=== PATIENT | male | born 1955 | race African-American/Black ===

== ENCOUNTER 2016-08-16 19:50 | Emergency (ER) | payer BC, MEDICAID ==
[~2016-08-16] VITALS: Ht 185.4 cm; Wt 146.5 kg
[~2016-08-16 19:50] MED LIST: APIX5TAB PO; ASPI81CH43 PO; ATE50T PO; ATOR20TA50 PO; CLOP75TA28 PO; DYA375C PO; LOSA50TA6 PO; PANT40TA2 PO
[2016-08-16 20:41] LABS: Basophils # (auto) 0 uL; Basophils % (auto) 0.3 % (0.0-2.0); Eosinophils # (auto) 0.2 uL; Eosinophils % (auto) 2.5 % (0.0-7.0); Hematocrit 43.3 % (41.0-53.0); Hemoglobin 13.9 g/dL (13.5-17.5); Lymphocytes # (auto) 2.1 uL; Lymphocytes % (auto) 26.3 % (10.0-50.0); Mean Corpuscular Hemoglobin 28.7 pg (28.0-32.0); Mean Corpuscular Hgb Conc. 32.2 g/dL (32.0-36.0); Mean Platelet Volume 8.8 fL (7.4-10.4); Monocytes # (auto) 0.7 uL; Monocytes % (auto) 9.1 % (0.0-12.0); Neutrophils # (auto) 4.9 uL; Neutrophils % (auto) 61.8 % (37.0-80.0); Platelet Count (auto) 264 10^3/uL (140-450); Red Cell Distribution Width 15.9 % (11.6-16.0)
[2016-08-16 20:54] LABS: INR 1.02 (0.9-1.15); Partial Thromboplastin Time 27.8 sec (22.64-33.71)
[2016-08-16 21:01] LABS: Albumin 3.4 g/dL (3.4-5.0); Anion Gap 5 (5-15); Blood Urea Nitrogen 15 mg/dL (7-18); Calcium 8.7 mg/dL (8.5-10.1); Carbon Dioxide 30 mmol/L (21-32); Chloride 106 mmol/L (98-107); Glucose 81 mg/dL (74-106); Potassium 3.9 mmol/L (3.5-5.1); Sodium 141 mmol/L (136-145)
[2016-08-16 21:03] LABS: BUN/Creatinine Ratio 12.5; GFR African American 79 mL/min; GFR Non-African American 66 mL/min
[2016-08-16 21:21] LABS: Alkaline Phosphatase 113 U/L (45-117); Aspartate Aminotransferase 13 U/L (15-37); Bilirubin, Total 0.6 mg/dL (0.2-1.0); Total Protein 8.3 g/dL (6.4-8.2)
[2016-08-17] MEDS ORDERED: HYDROcodone-ACET 5/325MG TAB PO ONE (01:30)
[2016-08-17 03:24] VITALS: BP 158/77
== END 2016-08-17 03:25 | disposition home or self-care (01) ==
LOC: ER 19:57
DX: M79.1 Myalgia (principal); I48.91 Unspecified atrial fibrillation; M10.9 Gout, unspecified; E78.5 Hyperlipidemia, unspecified; I10 Essential (primary) hypertension; Z90.49 Acquired absence of other specified parts of digestive tract; Z79.899 Other long term (current) drug therapy
CPT/HCPCS: 36415; 71010; 80053; 82550; 83880; 84484; 85025; 85610; 85730; 93005

== ENCOUNTER 2017-11-09 02:58 | Emergency (ER) | payer MEDICAID ==
[~2017-11-09] VITALS: Ht 188 cm; Wt 137.4 kg
[~2017-11-09 02:58] MED LIST changes: +INDO25CA14 PO
[2017-11-09 04:13] LABS: Basophils # (auto) 0.1 uL; Basophils % (auto) 0.8 % (0.0-2.0); Eosinophils # (auto) 0.4 uL; Eosinophils % (auto) 5.2 % (0.0-7.0); Hematocrit 35.9 % (41.0-53.0); Hemoglobin 11.6 g/dL (13.5-17.5); Lymphocytes # (auto) 1.8 uL; Mean Corpuscular Hemoglobin 27.8 pg (28.0-32.0); Mean Corpuscular Hgb Conc. 32.4 g/dL (32.0-36.0); Mean Corpuscular Volume 85.9 fL (80.0-100.0); Monocytes # (auto) 0.7 uL; Monocytes % (auto) 9.3 % (0.0-12.0); Neutrophils # (auto) 4.1 uL; Neutrophils % (auto) 58.7 % (37.0-80.0); Platelet Count (auto) 272 10^3/uL (140-450); Red Blood Cells 4.18 10^6/uL (4.5-5.90); Red Cell Distribution Width 15.7 % (11.8-14.3); White Blood Cell 7.1 10^3/uL (4.4-10.8)
[2017-11-09 04:31] LABS: Albumin 2.6 g/dL (3.4-5.0); BUN/Creatinine Ratio 9.7; Calcium 8.3 mg/dL (8.5-10.1); Potassium 3.8 mmol/L (3.5-5.1)
[2017-11-09 04:33] LABS: Bilirubin, Total 0.3 mg/dL (0.2-1.0); Total Protein 8.6 g/dL (6.4-8.2)
[2017-11-09 05:19] VITALS: BP 156/98
== END 2017-11-09 06:01 | disposition home or self-care (01) ==
LOC: ER 03:07
DX: R60.9 Edema, unspecified (principal); B37.9 Candidiasis, unspecified; I10 Essential (primary) hypertension; J45.909 Unspecified asthma, uncomplicated; I48.91 Unspecified atrial fibrillation; E78.5 Hyperlipidemia, unspecified; Z90.49 Acquired absence of other specified parts of digestive tract; Z79.82 Long term (current) use of aspirin
CPT/HCPCS: 36415; 71045; 80053; 83880; 85025; 93005